=== PATIENT | male | born 1965 | race Hispanic/Latino ===

== ENCOUNTER 2018-06-17 07:35 | Outpatient (CLI) | payer OTHER ==
--- NOTE | 2018-06-17 10:06 | MRI ---
MRI CERVICAL SPINE NONCONTRAST: Date: 06/17/18 HISTORY: 53-year-old male with M54.12 cervical radiculopathy. Left-sided cervicalgia radiating to left upper extremity, with pain and paresthesia of left upper ext remity. COMPARISON: None. FINDINGS: There is no Chiari I malformation. Cervical spine cord is normal in size and signal. Vertebral body h eights are maintained. Diffusely low signal intensity throughout the bone marrow of the cervical spin e and visualized portions of upper thoracic spine. This is nonspecific. Possibilities include red mar row conversion and various marrow infiltrative processes. No high grade degenerative facet changes at any level. There is moderate disc space narrowing at C5-6. The rest of the disc spaces are maintaine d. No major subluxation. C1-2: No high grade central spinal canal stenosis as seen on sagittal images. C2-3: Essentially normal. C3-4: Tiny disc-osteophyte complex indentation upon ventral aspect of the thecal sac. Mild central stenosis . Mild right neural foraminal stenosis. No left neural foraminal stenosis. C4-5: No high grade central stenosis. No right neural foraminal stenosis. Mild to moderate left neural fora han stenosis. C5-6: Broad based disc-osteophytic bar complex indents the ventral aspect of the thecal sac, causing mild t o moderate central spinal canal stenosis. Bilateral uncinate process osteophytes encroach upon the ne ural foramina, causing moderate right neural foraminal stenosis and severe left neural foraminal sten osis. C6-7: Small central disc protrusion indents the ventral aspect of the thecal sac causing mild to moderate c entral spinal canal stenosis. Small bilateral uncinate process osteophytes, right greater than left, encroach upon the bilateral neural foramina, causing moderate right neural foraminal stenosis, but no left neural foraminal stenosis. C7-T1: Normal. IMPRESSION: 1. Mild to moderate degenerative disc disease at C5-6, where there is severe left neural foraminal s tenosis and moderate right neural foraminal stenosis. 2. Nonspecific bone marrow signal alteration. POS: [facility]
== END 2018-06-17 07:36 | disposition home or self-care (01) ==
LOC: TBSIIMAG 07:35
PROVIDERS: ATTEND Neurological Surgery
DX: M50.122 Cervical disc disorder at C5-C6 level with radiculopathy (principal); M99.81 Other biomechanical lesions of cervical region
CPT/HCPCS: 72141